=== PATIENT | male | born 1985 | race Caucasian/White ===

== ENCOUNTER 2017-12-01 13:04 | Emergency (ER) | payer BC, OTHER ==
[~2017-12-01] VITALS: Ht 182.9 cm; Wt 83.9 kg
== END 2017-12-01 15:27 ==
LOC: ER 13:04
DX: S61.216A Laceration without foreign body of right little finger without damage to nail, initial encounter (principal); W45.8XXA Other foreign body or object entering through skin, initial encounter; Y93.89 Activity, other specified; Y92.89 Other specified places as the place of occurrence of the external cause; Y99.8 Other external cause status